=== PATIENT | male | born 1970 | race Caucasian/White ===

== ENCOUNTER 2018-06-21 20:36 | Emergency (ER) | payer SELFPAY ==
[2018-06-21 20:36] VITALS: BMI 27.2
[2018-06-21] MEDS ORDERED: Sodium Chloride 0.9% 1,000 ML IV STA (20:58)
--- NOTE | 2018-06-21 21:02 | C.PDOC ---
History Of Present Illness 48 year old male presents with fever, dysuria, urinary frequency, and bilateral flank pain since last night associated with dark colored urine and one episode of vomiting today. Denies any PMHx or cough. Time Seen by Provider: 06/21/18 20:53 Chief Complaint (Nursing): Male Genitourinary History Per: Patient History/Exam Limitations: no limitations Onset/Duration Of Symptoms: Days Current Symptoms Are (Timing): Still Present Quality Of Discomfort: Unable To Describe Associated Symptoms: Fever, Back Pain, Urinary Symptoms Alleviating Factors: None Recent travel outside of the [place]: No Past Medical History Reviewed: Historical Data, Nursing Documentation, Vital Signs Vital Signs: Last Vital Signs Temp 102.2 F H 06/21/18 20:46 Pulse 127 H 06/21/18 20:46 Resp 22 06/21/18 20:46 BP 118/72 06/21/18 20:46 Pulse Ox 97 06/21/18 20:46 Family History: States: Unknown Family Hx - Social History Hx Alcohol Use: No Hx Substance Use: No - Immunization History Hx Tetanus Toxoid Vaccination: No Hx Influenza Vaccination: No Hx Pneumococcal Vaccination: No Review Of Systems Except As Marked, All Systems Reviewed And Found Negative. Respiratory: Negative for: Cough Gastrointestinal: Negative for: Diarrhea Physical Exam - Physical Exam Additional Physical Exam Comments: Constitutional: No acute distress. Head: Normocephalic. Atraumatic. Eyes: PERRL. ENT: Moist mucous membranes. Neck: Supple. Cardiovascular: Tachycardic. Chest: No tenderness. Respiratory: Clear to auscultation bilaterally. GI: Soft. Nontender. Nondistended. Back: No CVA tenderness. Musculoskeletal: No tenderness or swelling of extremities. Skin: No rash. Neurologic: Alert, no focal deficit. ED Course And Treatment - Laboratory Results Result Diagrams: 06/21/18 21:19 06/21/18 21:19 O2 Sat by Pulse Oximetry: 97 (Room air) Pulse Ox Interpretation: Normal Medical Decision Making Medical Decision Making: CXR: No pneumonia. CT shows UTI and enlarged prostate which patient states he got checked for this past week. Patient states he feels much better and feels well to take antibiotics at home. Vitals normal at time of discharge. Instructed to return to ED for worsening pain, fever, dyspnea, vomiting, or any other problem. Disposition - Disposition Referrals: [facility] at [facility] [Outside] Disposition: HOME/ ROUTINE Disposition Time: 23:00 Condition: GOOD Prescriptions: Ciprofloxacin [Cipro] 500 mg PO BID #14 tab Ondansetron ODT [Zofran ODT] 4 mg PO Q8 #12 odt Instructions: Urinary Tract Infections in Adults Forms: [facility] (Slovak) - Clinical Impression Clinical Impression: UTI (urinary tract infection) - Scribe Statement The provider has reviewed the documentation as recorded by the Scribjuan ramon Topete All medical record entries made by the Scribe were at my direction and personally dictated by me. I have reviewed the chart and agree that the record accurately reflects my personal performance of the history, physical exam, medical decision making, and the department course for this patient. I have also personally directed, reviewed, and agree with the discharge instructions and disposition.
[2018-06-21] MEDS ORDERED: Sodium Chloride 0.9% 1,000 ML ONE (21:09)
[2018-06-21 21:23] LABS: BASO # 0.1 K/uL (0.0-0.2); BASO % 0.5 % (0.0-2.0); EOS % 0.1 % (0.0-4.0); HEMOGLOBIN 14.8 g/dL (12.0-18.0); LYMPH % 6.8 % (20.0-40.0); MEAN CELL VOLUME 88.5 fL (80.0-94.0); MEAN CORPUSCULAR HEMOGLOBIN 29.5 pg (27.0-31.0); MEAN CORPUSCULAR HGB CONC 33.4 g/dL (33.0-37.0); MEAN PLATELET VOLUME 9.7 fL (7.2-11.7); MONO # 0.7 K/uL (0.0-0.8); NEUT % 87.6 % (50.0-75.0); PLATELET COUNT 186 K/uL (130-400); RBC 5.02 Mil/uL (4.40-5.90); WHITE BLOOD COUNT 14.9 K/uL (4.8-10.8)
[2018-06-21 21:35] LABS: VENOUS BLOOD GAS BASE EXCESS -0.7 mmol/L (0.0-2.0); VENOUS BLOOD GAS PCO2 36 mmHg (40-60); VENOUS BLOOD GAS PO2 31 mm/Hg (30-55); VENOUS BLOOD PH 7.42 (7.32-7.43)
[2018-06-21 21:35] LABS: ALB/GLOB RATIO 1.3 (1.0-2.1); ALBUMIN 4.4 g/dL (3.5-5.0); ALT/SGPT 38 U/L (21-72); AST/SGOT 29 U/L (17-59); BLOOD UREA NITROGEN 15 mg/dL (9-20); CALCIUM 9.3 mg/dl (8.6-10.4); GFR NON-AFRICAN AMERICAN > 60; LIPASE 73 U/L (23-300)
[2018-06-21 21:38] LABS: URINE BACTERIA MOD (<OCC); URINE BILIRUBIN NEGATIVE (NEGATIVE); URINE BLOOD 3+ (NEGATIVE); URINE CLARITY Hazy (Clear); URINE COLOR Yellow (YELLOW); URINE GLUCOSE (UA) NORMAL (Normal); URINE LEUKOCYTE ESTERASE 3+ Leu/uL (Negative); URINE PROTEIN 1+ mg/dL (NEGATIVE); WBC CLUMPS FEW /hpf
[2018-06-21] MEDS ORDERED: Ciprofloxacin 400mg/200ml D5W 400 MG/200 ML BAG IVPB STA (21:41)
[2018-06-21] MEDS ORDERED: Iohexol 300 100 ML IJ ONE (21:44)
[2018-06-21] MEDS ORDERED: Ciprofloxacin 400mg/200ml D5W 400 MG/200 ML BAG IVPB ONE (21:49)
[2018-06-21 21:51] LABS: BANDS 4 % (0-2); LYMPHOCYTE 5 % (20-40); MONOCYTE 7 % (0-10); NEUTROPHIL 84 % (50-75); PLATELET ESTIMATE NORMAL (NORMAL); TOTAL CELLS COUNTED 100
[2018-06-21 21:52] LABS: LARGE PLATELETS PRESENT; MICROCYTOSIS SLIGHT
[2018-06-21 23:42] VITALS: BP 105/62; PULSE 79; RESP 18; TEMP 98.5
[2018-06-22 00:13] VITALS: O2SAT 97
--- NOTE | 2018-06-22 09:29 | CT ---
Date of service: 06/21/2018 PROCEDURE: CT Abdomen and Pelvis with contrast HISTORY: fever, dysuria COMPARISON: None available. TECHNIQUE: CT scan of the abdomen and pelvis was performed after administration of intravenous contrast. Oral contrast was not administered. Coronal and sagittal reformatted images were obtained. Contrast dose: 100 mL Omnipaque 300 Radiation dose: Total exam DLP = 644.77 mGy-cm. This CT exam was performed using one or more of the following dose reduction techniques: Automated exposure control, adjustment of the mA and/or kV according to patient size, and/or use of iterative reconstruction technique. FINDINGS: LOWER THORAX: The visualized lungs are clear. LIVER: Normal in size with homogeneous enhancement. Diffuse fatty liver. No gross lesion or ductal dilatation. GALLBLADDER AND BILE DUCTS: Well distended. No calcified gallstones, wall thickening or pericholecystic fluid. PANCREAS: Normal in size with homogeneous enhancement. No gross lesion or ductal dilatation. SPLEEN: Normal in size and appearance. ADRENALS: No discrete nodule. KIDNEYS AND URETERS: Normal in size with homogeneous enhancement. No hydronephrosis. No solid mass. VASCULATURE: No aortic aneurysm. There are no aortic atherosclerotic calcifications or mural plaque present. BOWEL: Evaluation of the bowel is limited in the absence of oral contrast. There are fluid-filled normal caliber small bowel loops and fecalization in the distal small bowel contents. There is moderate amount of stool in the ascending and transverse colon. The left hemicolon is decompressed. No bowel wall thickening or obstruction. APPENDIX: Normal appendix. PERITONEUM: No free fluid. No free air. LYMPH NODES: No enlarged lymph nodes. BLADDER: Well distended and there is mild circumferential mural thickening of the bladder wall. REPRODUCTIVE: There is moderate enlargement of the prostate gland with central coarse calcifications. BONES: No acute fracture. Within normal limits for the patient's age. OTHER FINDINGS: None. IMPRESSION: 1. Fluid-filled normal caliber small bowel loops could be related to nonspecific enteritis or ileus. 2. Constipation. 3. Moderate enlargement of the prostate gland. Please correlate with PSA levels. 4. Diffuse circumferential mural thickening of the urinary bladder wall may be related to cystitis or bladder outlet obstruction. 5. Fatty liver. A preliminary report was provided by [facility].
--- NOTE | 2018-06-22 11:00 | RAD ---
Date of service: 06/21/2018 HISTORY: fever COMPARISON: No prior. FINDINGS: LUNGS: The lungs are well inflated and clear. PLEURA: No pleural effusions or pneumothorax. CARDIOVASCULAR: The heart is normal in size. No aortic atherosclerotic calcifications present. OSSEOUS STRUCTURES: Within normal limits for the patient's age. VISUALIZED UPPER ABDOMEN: Normal. OTHER FINDINGS: None. IMPRESSION: No active pulmonary disease.
== END 2018-06-22 00:18 | disposition home or self-care (01) ==
LOC: C.ER 20:36
DX: N39.0 Urinary tract infection, site not specified (principal)
CPT/HCPCS: 71045; 74177; 80053; 81001; 82803; 83690; 83735; 84100; 85025; 87040; 87086; 87181; 96361; 96374; 96375; 99285; J0744; J1885; J2405; J7030; Q9967

== ENCOUNTER 2018-07-05 21:09 | Emergency (ER) | payer SELFPAY ==
[2018-07-05 21:10] VITALS: BMI 27.2
--- NOTE | 2018-07-05 21:40 | C.PDOC ---
Time Seen by Provider: 07/05/18 21:24 Chief Complaint (Nursing): Male Genitourinary Past Medical History Vital Signs: Last Vital Signs Temp 98.2 F 07/05/18 21:14 Pulse 75 07/05/18 21:14 Resp 14 07/05/18 21:14 BP 114/76 07/05/18 21:14 Pulse Ox 98 07/05/18 21:14 Family History: States: Unknown Family Hx - Social History Hx Alcohol Use: No Hx Substance Use: No - Immunization History Hx Tetanus Toxoid Vaccination: No Hx Influenza Vaccination: No Hx Pneumococcal Vaccination: No ED Course And Treatment O2 Sat by Pulse Oximetry: 98 Disposition - Disposition
[2018-07-05] MEDS ORDERED: Sodium Chloride 0.9% 1,000 ML IV STA (21:42)
--- NOTE | 2018-07-05 21:42 | C.PDOC ---
History Of Present Illness 48 y/o M p/w hematuria and dysuria x 4 days. Patient states had same symptoms 2 weeks ago, resolved after cipro which he finished 6 days ago. Denies fever, chills, chest pain, dyspnea, nausea, vomiting, diarrhea. Time Seen by Provider: 07/05/18 21:24 Chief Complaint (Nursing): Male Genitourinary Past Medical History Vital Signs: Last Vital Signs Temp 98.2 F 07/05/18 21:14 Pulse 75 07/05/18 21:14 Resp 14 07/05/18 21:14 BP 114/76 07/05/18 21:14 Pulse Ox 98 07/05/18 21:14 Family History: States: Unknown Family Hx - Social History Hx Alcohol Use: No Hx Substance Use: No - Immunization History Hx Tetanus Toxoid Vaccination: No Hx Influenza Vaccination: No Hx Pneumococcal Vaccination: No Review Of Systems Except As Marked, All Systems Reviewed And Found Negative. Constitutional: Negative for: Fever Respiratory: Negative for: Shortness of Breath Physical Exam - Physical Exam Additional Physical Exam Comments: gen nad head nc/at eyes perrl ent mmm neck supple chest no tenderness cv reg rate lungs cta b/l abd soft nt back no cva tenderness gu R testicular tenderness extremities no edema skin no rash neuro alert ED Course And Treatment - Laboratory Results Result Diagrams: 07/05/18 21:55 07/05/18 21:55 O2 Sat by Pulse Oximetry: 98 Pulse Ox Interpretation: Normal Medical Decision Making Medical Decision Making: Testicular US EXAM: US Scrotum. CLINICAL HISTORY: Testicular pain TECHNIQUE: Real-time ultrasound of the scrotum with color Doppler and image documentation. COMPARISON: None provided. FINDINGS: RIGHT TESTICLE: Right testicle measures 4.2 x 2.1 x 2.8 cm. Right testicle demonstrates homogeneous echogenicity. Right testicle demonstrates normal Doppler waveforms. LEFT TESTICLE: Left testicle measures 4.6 x 2.0 x 3.2 cm. Left testicle demonstrates homogeneous echogenicity. Left testicle demonstrates normal Doppler waveforms. EPIDIDYMIDES: Right epididymal head measures 1.3 cm in greatest dimension. There are 2 small left epididymal head cysts, each measuring 0.2 - 0.3 cm. Left epididymal head measures 1.1 cm in greatest dimension. SCROTUM: There is a right complex hydrocele. There is a left complex hydrocele. MISCELLANEOUS: No evidence for epididymoorchitis. No evidence for testicular mass. No evidence for torsion. IMPRESSION: 1. There are bilateral complex hydroceles. 2. There are 2 small left epididymal head cysts, each measuring 0.2 - 0.3 cm. 3. No evidence for epididymoorchitis. 4. No evidence for testicular mass. 5. No evidence for torsion. Electronically signed on Jul 05, 2018 10:42:26 PM EDT by: Wesley Diggs M.D., Certified by [facility], Diagnostic Radiology F/u urology, finish another course of antibiotics, f/u PMD, return to ED for worsening pain, fever, vomiting. Disposition - Disposition Referrals: Wilber Mitchell MD [Staff Provider] - Disposition: HOME/ ROUTINE Disposition Time: 23:00 Condition: GOOD Prescriptions: Ciprofloxacin [Cipro] 500 mg PO BID #20 tab Instructions: Hydrocele Forms: [employer] ([place]) - Clinical Impression Clinical Impression: Hydrocele
[2018-07-05 22:01] LABS: BASO # 0.1 K/uL (0.0-0.2); BASO % 0.9 % (0.0-2.0); EOS # 0.1 K/uL (0.0-0.7); EOS % 1.8 % (0.0-4.0); HEMOGLOBIN 14.6 g/dL (12.0-18.0); LYMPH # 2.9 K/uL (1.0-4.3); LYMPH % 36.4 % (20.0-40.0); MEAN CELL VOLUME 88.7 fL (80.0-94.0); MEAN CORPUSCULAR HEMOGLOBIN 30.6 pg (27.0-31.0); MEAN CORPUSCULAR HGB CONC 34.5 g/dL (33.0-37.0); MEAN PLATELET VOLUME 9.2 fL (7.2-11.7); MONO # 0.5 K/uL (0.0-0.8); MONO % 6.5 % (0.0-10.0); NEUT # 4.3 K/uL (1.8-7.0); NEUT % 54.4 % (50.0-75.0); NRBC % 0.1 % (0.0-2.0); RBC 4.77 Mil/uL (4.40-5.90); RED CELL DISTRIBUTION WIDTH 13.5 % (11.5-14.5); WHITE BLOOD COUNT 7.9 K/uL (4.8-10.8)
[2018-07-05 22:04] LABS: URINE BILIRUBIN NEGATIVE (NEGATIVE); URINE BLOOD NEGATIVE (NEGATIVE); URINE CLARITY Clear (Clear); URINE COLOR Yellow (YELLOW); URINE GLUCOSE (UA) NORMAL (Normal); URINE LEUKOCYTE ESTERASE NEG Leu/uL (Negative); URINE PROTEIN NEGATIVE (NEGATIVE); URINE UROBILINOGEN NORMAL mg/dL (0.2-1.0)
[2018-07-05 22:18] LABS: ALB/GLOB RATIO 1.3 (1.0-2.1); ALBUMIN 4.3 g/dL (3.5-5.0); ALT/SGPT 41 U/L (21-72); AST/SGOT 37 U/L (17-59); BLOOD UREA NITROGEN 20 mg/dL (9-20); CALCIUM 9.4 mg/dl (8.6-10.4); GFR NON-AFRICAN AMERICAN > 60
[2018-07-05 22:28] VITALS: BP 126/84; PULSE 69; RESP 18; TEMP 98.3
[2018-07-05 22:44] VITALS: O2SAT 98
--- NOTE | 2018-07-06 09:01 | US ---
Date of service: 07/05/2018 HISTORY: testicular pain TECHNIQUE: Realtime sonography through the scrotum with color and doppler flow. COMPARISON: None Available. FINDINGS: RIGHT TESTICLE: Measures 2.1 x 2.8 x 4.2 cm. Normal echotexture and flow. RIGHT EPIDIDYMIS: Epididymal head measures 1.2 x 0.8 cm. Grossly unremarkable appearance with normal flow. LEFT TESTICLE: Measures 2 x 3.2 x 4 point cm. Normal echotexture and flow. LEFT EPIDIDYMIS: Epididymal head measures 1.1 x 0.8 cm. Two small epididymal cysts each measuring approximately 2 mm. HYDROCELE: Bilateral, small, containing debris and approximately symmetrical. VARICOCELE: Unilateral, left OTHER FINDINGS: None. IMPRESSION: Negative study for epididymitis, orchitis, torsion or testicular mass. Small bilateral hydroceles. Unilateral, left varicocele. Concordant findings (preliminary report) provided by [facility].
== END 2018-07-05 23:07 | disposition home or self-care (01) ==
LOC: C.ER 21:09
DX: N43.3 Hydrocele, unspecified (principal)
CPT/HCPCS: 76870; 80053; 81001; 85025; 87086; 96360; 99284; J7030